=== PATIENT | female | born 1945 | race American Indian/Alaskan Native ===

== ENCOUNTER 2017-01-27 13:20 | Day surgery (SDC) | payer MEDICARE ==
--- NOTE | 2017-01-27 14:37 | Anesthesia Consultation ---
Anesthesia Consult and Med Hx Date of service: 01/27/17 - Airway Anesthetic Teeth Evaluation: Good ROM Head & Neck: Adequate Mental/Hyoid Distance: Adequate Mallampati Class: Class II Intubation Access Assessment: Probably Good - Pulmonary Exam CTA: Yes - Pre-Operative Health Status ASA Pre-Surgery Classification: ASA3 - Pulmonary Hx Smoking: Yes (1 ppd) Hx Asthma: No Hx Sleep Apnea: Yes (lost weight since dx, no CPAP) - Cardiovascular System Hx Hypertension: Yes (x 25 yrs) Hx Coronary Artery Disease: No Hx Heart Attack/AMI: No Hx Angina: No Hx Cardia Arrhythmia: Yes (tachycardia - takes a beta murray; also MVP) - Central Nervous System Hx Neuromuscular Disorder: No (has had brain surgery for removal of meningioma - can't have head flat ) Hx Seizures: No CVA: No Hx Back Pain: Yes (SPINAL STENOSIS) Hx Psychiatric Problems: No - Gastrointestinal Hx Gastroesophageal Reflux Disease: Yes (occasional) - Endocrine Hx Renal Disease: Yes (right renal tumor, RCC - cryo'd, Renal Fxn normal) Hx Liver Disease: No Hx Non-Insulin Dependent Diabetes: No Hx Thyroid Disease: No Hx Hypothyroidism: Yes (no meds) - Hematic Hx Anemia: No Hx Sickle Cell Disease: Yes (trait) - Other Systems Hx Alcohol Use: No Hx Substance Use: Yes (uses marijuana - helps her pain) Hx Cancer: Yes
--- NOTE | 2017-01-27 14:38 | Anesthesia Day of Surgery ---
Anesthesia Day of Surgery - Day of Surgery Patient Examined: Yes Patient H&P Reviewed: Yes Patient is NPO: Yes Beta Blockers: Yes (took metoprolol this am)
[2017-01-27] MEDS ORDERED: TETRACAINE 0.5% OS SCH (15:45)
[2017-01-27] MEDS: VIGAMOX OS SCH ×3 (15:48→16:00)
[2017-01-27] MEDS ORDERED: NACL 0.9% 1000 ML 1,000 ML IV SCH (16:00)
[2017-01-27] MEDS ORDERED: SUBLIMAZE ONE (16:24)
[2017-01-27] MEDS ORDERED: XYLOCAINE MPF 2% ONE (16:24)
[2017-01-27] MEDS ORDERED: DIPRIVAN 10 MG/ML IV ONE (16:25)
[2017-01-27] MEDS ORDERED: MIOSTAT OS ONE (16:25)
[2017-01-27] MEDS ORDERED: WATER FOR IRRIG STERILE IR ONE (16:25)
[2017-01-27] MEDS ORDERED: ADRENALIN IV ONE (16:25)
[2017-01-27] MEDS ORDERED: XYLOCAINE MPF 1% INFILTRATI ONE (16:25)
[2017-01-27] MEDS ORDERED: DECADRON ONE ×2 (17:05→17:26)
[2017-01-27] MEDS ORDERED: ZOFRAN ONE (17:05)
--- NOTE | 2017-01-27 17:25 | Short Stay Summary ---
Short Stay Documentation Date of service: 01/27/17 - History H&P: obtained from office - Allergies and Medications Current Medications: Allergies cephalexin monohydrate [From Keflex] Allergy (Verified 01/24/17 17:44) dermatitis sulfamethoxazole [From Bactrim] Allergy (Verified 01/24/17 17:44) dermatitis trimethoprim [From Bactrim] Allergy (Verified 01/24/17 17:44) dermatitis Home Medications Medication Instructions Recorded Confirmed Last Taken Type Isosorbide Dinitrate 30 mg PO BID 06/05/14 01/24/17 01/27/17 08:30 History Metoprolol [Lopressor TAB] 100 mg PO DAILY 06/05/14 01/24/17 01/27/17 08:30 History Rosuvastatin (Nf) [Crestor] 10 mg PO QHS 06/05/14 01/24/17 01/27/17 08:30 History Valsartan-Hctz 160-25 mg 1 tab PO DAILY 06/05/14 01/24/17 01/27/17 08:30 History amLODIPine [Norvasc] 5 mg PO QDAY 01/27/17 01/27/17 01/27/17 08:30 History Active Medications Sodium Chloride (Nacl 0.9% 1000 Ml) 1,000 mls @ 75 mls/hr IV DIRECT DARA Last Admin: 01/27/17 15:44 Dose: 75 mls/hr Moxifloxacin HCl (Vigamox) 1 drops OS Q5MIN DARA Stop: 01/27/17 23:59 Last Admin: 01/27/17 16:00 Dose: 1 drops Prednisolone Acetate (Pred Forte 1%) 1 drops OS QID DARA Tetracaine HCl (Tetracaine 0.5%) 1 drops OS Q5M DARA Stop: 01/27/17 23:59 Last Admin: 01/27/17 15:47 Dose: 1 drops Timolol Maleate (Timoptic) 1 drops OS ONCE ONE Stop: 01/27/17 18:01 - Brief post op/procedure progress note Date of procedure: 01/27/17 Pre-op diagnosis: posterior synechiae and correctable. Left eye Post-op diagnosis: same Procedure: Synechiolysis and pupilloplasty left eye Anesthesia: MAC Surgeon: TISHA MALDONADO Estimated blood loss: none Pathology: none Condition: stable - Disposition Condition at discharge: Good Disposition: DC-01 TO HOME OR SELFCARE - Discharge Diagnoses (1) Corectopia Status: Resolved (2) Posterior synechiae (iris), left eye Status: Resolved Short Stay Discharge Plan Follow up with: NICK PARISH MD [Primary Care Provider] - 7 Days
--- NOTE | 2017-01-27 17:29 | Operative Report ---
Operative Report Operative Report: DATE OF SURGERY: 01/27/2017 PREOPERATIVE DIAGNOSIS: Posterior synechiae and corectopia left eye POSTOPERATIVE DIAGNOSIS: Same OPERATIVE PROCEDURE: Synechiolysis and pupilloplsty left eye SURGEON: eJimy Meza M.D. [employer] ADMINISTR[employer] SURGEON: Temo ANESTHESIA: SET PAINTER COMPLICATIONS: No surgical complications No blood loss. ALLERGIES: Prophylaxis and sulfa trimethoprim PROGNOSIS: Excellent INDICATIONS FOR SURGERY: The patient is undergoing surgery in the hopes of eliminating or improving these visual difficulties. PROCEDURE: After arriving at the surgery center, the patient was given general anesthesia . The patient was then taken into the operating room and given more anesthetic drops. The eyelids, lashes, and lid margins were scrubbed with Betadine solution, and the patient was draped. 2.2 keratome was used to enter the eye followed by injection of Provisc. I could dilate this material was used to gently tease the iris from the DSEAK graft. A membrane was seen and this was cut using Vicryl sutures as well as microforceps to pull it away from adhesions. Once this was done Miostat was injected into the eye and iris was noted to constrict. Viscoelastic was removed BSS was used to closed incision. ReSure sealant was used to make sure that the incision would recommend close. Patient was awoken and taken to recovery in stable condition
[2017-01-27] MEDS ORDERED: TYLENOL PO PRN (17:41)
[2017-01-27] MEDS ORDERED: PRED FORTE 1% OS SCH (18:00)
[2017-01-27] MEDS ORDERED: TIMOPTIC OS ONE (18:00)
--- NOTE | 2017-01-27 18:24 | Post Anesthesia Evaluation ---
- Post Anesthesia Evaluation Patient Participated: Yes Airway Patent: Yes Stable Respiratory Function: Yes Temp > 96.8F: Yes Pain Manageable: Yes Adequeate Hydration: Yes Anesthesia Complications: No
[2017-01-27 19:25] VITALS: BP 139/76
== END 2017-01-27 13:21 | disposition home or self-care (01) ==
LOC: OR 13:20
DX: H21.542 Posterior synechiae (iris), left eye (principal); H21.89 Other specified disorders of iris and ciliary body; K21.9 Gastro-esophageal reflux disease without esophagitis; E78.00 Pure hypercholesterolemia, unspecified; E03.9 Hypothyroidism, unspecified; I10 Essential (primary) hypertension; Z79.899 Other long term (current) drug therapy; Z88.8 Allergy status to other drugs, medicaments and biological substances; Z88.2 Allergy status to sulfonamides; Z98.41 Cataract extraction status, right eye; Z87.891 Personal history of nicotine dependence; Z98.890 Other specified postprocedural states; Z85.53 Personal history of malignant neoplasm of renal pelvis
CPT/HCPCS: 65875; J0171; J1100; J2405; J2704; J3010; J7030